=== PATIENT | female | born 1945 | race Caucasian/White ===

== ENCOUNTER → 2016-12-28 | Outpatient (CLI) | payer BC, MEDICARE ==
[2016-12-28 10:48] LABS: ABSOLUTE EOSINOPHILS # (AUTO) 0.1 10^3/uL (0.0-0.6); ABSOLUTE LYMPHOCYTES (AUTO) 1.1 10^3/uL (0.5-4.7); ABSOLUTE MONOCYTES (AUTO) 0.4 10^3/uL (0.1-1.4); ABSOLUTE NEUT (AUTO) 3.1 10^3/uL (1.7-8.2); BASOPHILS % (AUTO) 0.5 % (0-2); EOSINOPHILS % (AUTO) 2.5 % (0-6); HEMATOCRIT 36.9 % (36.0-47.0); HEMOGLOBIN 12.6 g/dL (12.0-15.5); HGB HCT DIFFERENCE 0.9; LYMPHOCYTES % (AUTO) 22.5 % (13-45); MEAN CORPUSCULAR HEMOGLOBIN 33.4 pg (27.0-33.4); MEAN CORPUSCULAR VOLUME 98 fl (80-97); MONOCYTES % (AUTO) 8.2 % (3-13); RED BLOOD COUNT 3.76 10^6/uL (3.72-5.28); RED CELL DISTRIBUTION WIDTH 12.8 % (11.5-14.0); SEGMENTED NEUTROPHILS % (AUTO) 66.3 % (42-78); WHITE BLOOD COUNT 4.7 10^3/uL (4.0-10.5)
[2016-12-28 11:07] LABS: ALANINE AMINOTRANSFERASE 30 U/L (9-52); ALBUMIN 3.7 g/dL (3.5-5.0); ALKALINE PHOSPHATASE 93 U/L (38-126); ANION GAP 9 (5-19); ASPARTATE AMINO TRANSFERASE 18 U/L (14-36); BILIRUBIN,DIRECT 0.3 mg/dL (0.0-0.4); BILIRUBIN,TOTAL 0.6 mg/dL (0.2-1.3); BLOOD UREA NITROGEN 15 mg/dL (7-20); CALCIUM 9.1 mg/dL (8.4-10.2); CARBON DIOXIDE 24 mmol/L (22-30); CHLORIDE 110 mmol/L (98-107); CREATININE RESULT 0.92 mg/dL (0.52-1.25); GLUCOSE 92 mg/dL (75-110); POTASSIUM 4.3 mmol/L (3.6-5.0); SODIUM 142.9 mmol/L (137-145); TOTAL PROTEIN 6.5 g/dL (6.3-8.2)
== END ==
LOC: OD 09:30
PROVIDERS: ATTEND Internal Medicine Geriatric Medicine
DX: I10 Essential (primary) hypertension (principal)
CPT/HCPCS: 36415; 80053; 85025

== ENCOUNTER 2017-01-13 17:41 | Emergency (ER) | payer BC, MEDICARE ==
--- NOTE | 2017-01-13 18:36 | ER Document Report ---
ED Medical Screen (RME) - General Chief Complaint: Chest Pain Stated Complaint: CHEST PAIN Time Seen by Provider: 01/13/17 18:28 Notes: This 71-year-old female patient comes emergency room with complaint of intermittent chest pain for several hours, feeling dizzy and nauseous today, feeling tired for several days getting worse. She reports pressure in her chest , lungs, and upper back. Brief exam shows considerable anterior chest wall tenderness and tenderness to palpate the muscles in her upper back. I have greeted and performed a rapid initial assessment of this patient. A comprehensive ED assessment and evaluation of the patient, analysis of test results and completion of the medical decision making process will be conducted by additional ED providers. TRAVEL OUTSIDE OF THE [place] IN LAST 30 DAYS: No - Related Data Allergies/Adverse Reactions: codeine [Codeine] Allergy (Mild, Verified 04/25/15 15:02) Hives Past Medical History - Past Medical History Cardiac Medical History: Reports: Hx Congestive Heart Failure, Hx Heart Attack, Hx Hypercholesterolemia, Hx Hypertension Pulmonary Medical History: Reports: Hx COPD Neurological Medical History: Reports: Hx Migraine Endocrine Medical History: Reports: Hx Hypothyroidism Renal/ Medical History: Denies: Hx Peritoneal Dialysis GI Medical History: Reports: Hx Hiatal Hernia Psychiatric Medical History: Reports: Hx Anxiety, Hx Depression Past Surgical History: Reports: Hx Cardiac Catheterization - stents x4, Hx Cardiac Surgery - x3 triple bypass, Hx Section - x1, Hx Cholecystectomy , Hx Orthopedic Surgery - cervical fusion - Immunizations Hx Diphtheria, Pertussis, Tetanus Vaccination: Yes Physical Exam - Vital signs Vitals: Temp Pulse Resp BP Pulse Ox 97.9 F 71 18 116/64 96 01/13/17 17:59 01/13/17 17:59 01/13/17 17:59 01/13/17 17:59 01/13/17 17:59 Course - Vital Signs Vital signs: Temp Pulse Resp BP Pulse Ox 97.9 F 71 18 116/64 96 01/13/17 17:59 01/13/17 17:59 01/13/17 17:59 01/13/17 17:59 01/13/17 17:59
--- NOTE | 2017-01-13 19:31 | RADIOLOGY REPORT (SQ) ---
EXAM DESCRIPTION: CHEST PA/LAT COMPLETED DATE/TIME: 01/13/2017 7:13 pm REASON FOR STUDY: chest pain COMPARISON: 04/25/2015 EXAM PARAMETERS: NUMBER OF VIEWS: two views TECHNIQUE: Digital Frontal and Lateral radiographic views of the chest acquired. RADIATION DOSE: NA LIMITATIONS: none FINDINGS: LUNGS AND PLEURA: No opacities, masses or pneumothorax. No pleural effusion. MEDIASTINUM AND HILAR STRUCTURES: No masses or contour abnormalities. HEART AND VASCULAR STRUCTURES: Heart normal size. No evidence for failure. BONES: No acute findings. HARDWARE: Sternotomy wires are in place. OTHER: No other significant finding. IMPRESSION: NO SIGNIFICANT RADIOGRAPHIC FINDING IN THE CHEST. TECHNICAL DOCUMENTATION: JOB ID: [id number] [employer]- All Rights Reserved
[2017-01-13 19:40] LABS: ABSOLUTE EOSINOPHILS # (AUTO) 0.2 10^3/uL (0.0-0.6); ABSOLUTE LYMPHOCYTES (AUTO) 1.3 10^3/uL (0.5-4.7); ABSOLUTE MONOCYTES (AUTO) 0.5 10^3/uL (0.1-1.4); ABSOLUTE NEUT (AUTO) 3.8 10^3/uL (1.7-8.2); BASOPHILS % (AUTO) 0.5 % (0-2); HEMATOCRIT 35.2 % (36.0-47.0); HEMOGLOBIN 12.1 g/dL (12.0-15.5); HGB HCT DIFFERENCE 1.1; LYMPHOCYTES % (AUTO) 22.7 % (13-45); MEAN CORPUSCULAR HEMOGLOBIN 33.5 pg (27.0-33.4); MEAN CORPUSCULAR HGB CONC 34.2 g/dL (32.0-36.0); MEAN CORPUSCULAR VOLUME 98 fl (80-97); MONOCYTES % (AUTO) 8.9 % (3-13); RED CELL DISTRIBUTION WIDTH 12.8 % (11.5-14.0); SEGMENTED NEUTROPHILS % (AUTO) 64.9 % (42-78); WHITE BLOOD COUNT 5.8 10^3/uL (4.0-10.5)
[2017-01-13 20:00] LABS: ALANINE AMINOTRANSFERASE 25 U/L (9-52); ALBUMIN 4.1 g/dL (3.5-5.0); ALKALINE PHOSPHATASE 94 U/L (38-126); ANION GAP 9 (5-19); ASPARTATE AMINO TRANSFERASE 22 U/L (14-36); BILIRUBIN,DIRECT 0.3 mg/dL (0.0-0.4); BILIRUBIN,TOTAL 0.7 mg/dL (0.2-1.3); BLOOD UREA NITROGEN 16 mg/dL (7-20); CALCIUM 9.5 mg/dL (8.4-10.2); CARBON DIOXIDE 26 mmol/L (22-30); CHLORIDE 106 mmol/L (98-107); CREATINE KINASE 66 U/L (30-135); CREATININE RESULT 0.89 mg/dL (0.52-1.25); GLUCOSE 82 mg/dL (75-110); POTASSIUM 4.5 mmol/L (3.6-5.0); SODIUM 140.5 mmol/L (137-145); TOTAL PROTEIN 6.7 g/dL (6.3-8.2)
--- NOTE | 2017-01-13 23:15 | ER Document Report ---
ED General - General Chief Complaint: Chest Pain Stated Complaint: CHEST PAIN Time Seen by Provider: 01/13/17 18:28 Notes: This 71-year-old female with history of coronary artery disease and DE which presented with vomiting and sweating presents to the ED with chest pressure onset 2 PM at rest, throughout the chest nonradiating intermittent least severe however never quite left her. Now it is more sore than anything else. No cough hemoptysis leg swelling sweating nausea vomiting or shortness of breath. She had a reported history of a stress test that was normal 2 months [address] and sees [address] Louise is her senior clinical data analyst. TRAVEL OUTSIDE OF THE [place] IN LAST 30 DAYS: No - Related Data Allergies/Adverse Reactions: codeine [Codeine] Allergy (Mild, Verified 04/25/15 15:02) Hives Home Medications: Current Home Medications Ranolazine [Ranexa 500 mg Tab.sr] 500 mg PO Q12 01/13/17 [History] Past Medical History - General Information source: Patient - Social History Smoking Status: Never Smoker Family History: Reviewed & Not Pertinent Patient has suicidal ideation: No Patient has homicidal ideation: No - Past Medical History Cardiac Medical History: Reports: Hx Congestive Heart Failure, Hx Heart Attack, Hx Hypercholesterolemia, Hx Hypertension Pulmonary Medical History: Reports: Hx COPD Neurological Medical History: Reports: Hx Migraine Endocrine Medical History: Reports: Hx Hypothyroidism Renal/ Medical History: Denies: Hx Peritoneal Dialysis GI Medical History: Reports: Hx Hiatal Hernia Psychiatric Medical History: Reports: Hx Anxiety, Hx Depression Past Surgical History: Reports: Hx Cardiac Catheterization - stents x4, Hx Cardiac Surgery - x3 triple bypass, Hx Section - x1, Hx Cholecystectomy , Hx Orthopedic Surgery - cervical fusion - Immunizations Hx Diphtheria, Pertussis, Tetanus Vaccination: Yes Hx Pneumococcal Vaccination: 03/20/14 Review of Systems - Review of Systems Notes: REVIEW OF SYSTEMS GEN: Denies fever, chills, weight loss ENT: Denies sore throat, nasal discharge, ear pain EYES: Denies blurry vision, eye pain, discharge CV: Chest pain, no edema RESP: Denies cough, shortness of breath, wheezing GI: Denies abdominal pain, nausea, vomiting, diarrhea MSK: Denies joint pain/swelling, edema, SKIN: Denies rash, skin lesions LYMPH: Denies swollen glands/lymph nodes NEURO: Denies headache, focal weakness or numbness, dizziness PSYCH: Denies depression, suicidal or homicidal ideation PHYSICAL EXAMINATION General: No acute distress, well-nourished Head: Atraumatic, normocephalic ENT: Mouth normal, oropharynx moist, no exudates or tonsillar enlargement Eyes: Conjunctiva normal, pupils equal, lids normal Neck: No JVD, supple, no guarding CVS: Normal rate, regular rhythm, no murmurs Resp: No resp distress, equal and normal breath sounds bilaterally GI: Nondistended, soft, no tenderness to palpation, no rebound or guarding Ext: No deformities, no edema, normal range of motion in upper and lower ext Back: No CVA or midline TTP Skin: No rash, warm Lymphatic: No lymphadeopathy noted Neuro: Awake, alert. Face symmetric. GCS 15. Physical Exam - Vital signs Vitals: Temp Pulse Resp BP Pulse Ox 97.9 F 71 18 116/64 96 01/13/17 17:59 01/13/17 17:59 01/13/17 17:59 01/13/17 17:59 01/13/17 17:59 Course - Re-evaluation Re-evalutation: 01/13/17 23:15 Well-appearing 71-year-old female with coronary disease presents with resolved chest pressure normal exam. Her EKG is unchanged nonischemic. Her EKG does not show ischemia. Her chest x-ray is normal. Given this, her physical findings and her story coupled with the fact that she had a recent negative stress test in the last 3 months I think that the chances of this being unstable angina are very low. STEMI and an STEMI have been ruled out with labs and EKG. She is appropriate for outpatient management and can see Dr. Hurst and or Dr. Louise expeditiously for follow-up. She is okay with this plan. I have discussed with the patient there likely diagnosis, aftercare plan, follow -up plans and my usual and customary return precautions. They verbalized understanding of this. - Vital Signs Vital signs: Temp Pulse Resp BP Pulse Ox 97.9 F 71 18 116/64 96 01/13/17 17:59 01/13/17 17:59 01/13/17 17:59 01/13/17 17:59 01/13/17 17:59 - Laboratory Result Diagrams: 01/13/17 18:57 01/13/17 18:57 Laboratory results interpreted by me: 01/13/17 18:57 RBC 3.60 L Hct 35.2 L MCV 98 H MCH 33.5 H - Diagnostic Test Radiology reviewed: Image reviewed, Reports reviewed - EKG Interpretation by Me EKG shows normal: Sinus rhythm Rhythm: NSR - No ST or T-wave changes. When compared to previous EKG there are: No significant change Discharge - Discharge Clinical Impression: Chest pressure Condition: Good Disposition: HOME, SELF-CARE Instructions: Chest Pain of Unclear Cause ([facility]) Additional Instructions: Your EKG was normal today and your blood test for heart attack was also normal. Please follow-up with your primary doctor and or your senior clinical data analyst within 5 days.
[2017-01-13 23:55] VITALS: BP 129/64
--- NOTE | 2017-01-14 13:07 | EKG REPORT ---
SEVERITY:- BORDERLINE ECG - SINUS RHYTHM BORDERLINE T ABNORMALITIES, ANT-LAT LEADS : Confirmed by: Keenan Ward 14-Jan-2017 13:06:57
== END 2017-01-14 00:02 | disposition home or self-care (01) ==
LOC: ER 17:41
DX: R07.89 Other chest pain (principal); I25.10 Atherosclerotic heart disease of native coronary artery without angina pectoris; I25.2 Old myocardial infarction; I10 Essential (primary) hypertension; J44.9 Chronic obstructive pulmonary disease, unspecified; Z88.5 Allergy status to narcotic agent; Z98.61 Coronary angioplasty status
CPT/HCPCS: 36415; 71020; 80053; 82550; 84484; 85025; 93005; 93010; 99285

== ENCOUNTER → 2017-08-12 | Outpatient (CLI) | payer BC, MEDICARE ==
[2017-08-12 11:38] LABS: CHOLESTEROL 172.32 mg/dL (0-200); TRIGLYCERIDES 141 mg/dL (<150)
[2017-08-12 11:51] LABS: DIRECT LDL 94 mg/dL (<100)
== END ==
LOC: OD 10:55
PROVIDERS: ATTEND Internal Medicine Geriatric Medicine
DX: E78.5 Hyperlipidemia, unspecified (principal)
CPT/HCPCS: 36415; 80061

== ENCOUNTER → 2017-10-04 | Outpatient (CLI) | payer BC, MEDICARE ==
[2017-10-04 12:33] LABS: ALANINE AMINOTRANSFERASE 28 U/L (9-52); ALBUMIN 3.9 g/dL (3.5-5.0); ALKALINE PHOSPHATASE 100 U/L (38-126); ANION GAP 12 (5-19); ASPARTATE AMINO TRANSFERASE 23 U/L (14-36); BILIRUBIN,DIRECT 0.2 mg/dL (0.0-0.4); BILIRUBIN,TOTAL 0.2 mg/dL (0.2-1.3); BLOOD UREA NITROGEN 19 mg/dL (7-20); CALCIUM 9.3 mg/dL (8.4-10.2); CARBON DIOXIDE 26 mmol/L (22-30); CHLORIDE 110 mmol/L (98-107); GLUCOSE 108 mg/dL (75-110); POTASSIUM 4.1 mmol/L (3.6-5.0); SODIUM 148.2 mmol/L (137-145); TOTAL PROTEIN 6.5 g/dL (6.3-8.2)
== END ==
LOC: OD 11:04
PROVIDERS: ATTEND Internal Medicine Geriatric Medicine
DX: I10 Essential (primary) hypertension (principal); E03.9 Hypothyroidism, unspecified
CPT/HCPCS: 36415; 80053

== ENCOUNTER → 2017-10-08 | Outpatient (CLI) | payer BC, MEDICARE ==
--- NOTE | 2017-10-08 14:04 | WOMENS IMAGING REPORT ---
EXAM DESCRIPTION: 3D SCREENING MAMMO BILAT COMPLETED DATE/TIME: 10/08/2017 8:59 am REASON FOR STUDY: ROUTINE SCREENING;Z12.31 Z12.31 ENCNTR SCREEN MAMMOGRAM FOR MALIGNANT NEOPLASM OF LARRY COMPARISON: 2013, 2014 TECHNIQUE: Standard craniocaudal and mediolateral oblique views of each breast recorded using digita l acquisition and breast tomosynthesis. LIMITATIONS: None. FINDINGS: Findings present which are benign by mammographic criteria. No suspicious masses, calcifi cations or architectural distortion. Pertinent benign findings: Benign bilateral breast parenchymal calcifications. Read with the assistance of CAD. .[facility] - R2 Cenova Version 1.3 .[facility] - R2 Cenova Version 1.3 .[facility] - R2 Cenova Version 2.4 .[facility] [place] Cenova Version 2.4 .COUNTS INCLUDE 234 BEDS AT THE [facility] - R2 Spinning Mule Operator Version 9.2 Benign mammographic findings may include one or more of the following: Smooth masses, popcorn/rim/co arse calcifications, asymmetries, post-procedure changes, and lesions with long-standing stability. IMPRESSION: BENIGN MAMMOGRAPHIC FINDINGS. BIRADS 2 BREAST DENSITY: b. There are scattered areas of fibroglandular density. BIRAD: 2 BENIGN FINDING(S) RECOMMENDATION: RECOMMENDATION: ROUTINE SCREENING Please continue yearly bilateral screening mammography/tomosynthesis in October 2017. COMMENT: The patient has been notified of the results by letter per MQSA requirements. Additional no tification policies are in place for contacting patient with suspicious or incomplete findings. Quality ID #[id number]: The [employer] recommends an annual screening mammogram for women aged 40 years or over. This facility utilizes a reminder system to ensure that all patients receive reminder letters, and/or direct phone calls for appointments. This includes reminders for routine scr eening mammograms, diagnostic mammograms, or other Breast Imaging Interventions when appropriate. Th is patient will be placed in the appropriate reminder system. The [employer] (ACR) has developed recommendations for screening MRI of the breast s in certain patient populations, to be used in conjunction with mammography. Breast MRI surveillanc e may be appropriate for women with more than 20% lifetime risk of developing breast cancer as deter mined by genetic testing, significant family history of the disease, or history of mantle radiation f or Hodgkins Disease. ACR Practice Guidelines 2008. DBT Technology DBT is a type of tomographic mammography. With conventional mammography, overlapping breast tissue ma y make lesions difficult to detect, even with good compression. DBT uses an x-ray tube that rotates a round the breast, taking images at different angles. These images are then combined to create thin sl ices of the breast that the radiologist can view as a 3D reconstruction. The [employer] unit can perform full-field digital mammograms (2D imaging); or DBT (3D imaging); or both, in a combination mode that quickly performs both the mammogram and the tomosynthesis scan while the breast is still compressed. PQRS 6045F: Fluoroscopic imaging is not utilized for breast tomosynthesis. TECHNICAL DOCUMENTATION: FINDING NUMBER: (1) ASSESSMENT: (1) JOB ID: [id number] [employer]- All Rights Reserved Reading location - IP/workstation name: [email or web address]
== END ==
LOC: WI 08:37
PROVIDERS: ATTEND Internal Medicine Geriatric Medicine
DX: Z12.31 Encounter for screening mammogram for malignant neoplasm of breast (principal)
CPT/HCPCS: 77063; 77067

== ENCOUNTER → 2017-10-27 | Outpatient (CLI) | payer BC, MEDICARE ==
[2017-10-27 11:20] LABS: FREE T3 3.78 pg/mL (2.77-5.27); FREE T4 (FREE THYROXINE) 0.5 ng/dL (0.78-2.19)
== END ==
LOC: OD 09:16
PROVIDERS: ATTEND Internal Medicine Geriatric Medicine
DX: E03.9 Hypothyroidism, unspecified (principal)
CPT/HCPCS: 36415; 84439; 84481

== ENCOUNTER 2018-06-25 18:29 | Observation (INO) | payer BC, MEDICARE ==
[2018-06-25] MEDS ORDERED: ASPIRIN 81 MG TABLET, CHEWABLE PO ONE (18:47)
[2018-06-25 19:02] LABS: ABSOLUTE EOSINOPHILS # (AUTO) 0.2 10^3/uL (0.0-0.6); ABSOLUTE LYMPHOCYTES (AUTO) 1.5 10^3/uL (0.5-4.7); ABSOLUTE MONOCYTES (AUTO) 0.6 10^3/uL (0.1-1.4); ABSOLUTE NEUT (AUTO) 4.7 10^3/uL (1.7-8.2); BASOPHILS % (AUTO) 0.6 % (0-2); EOSINOPHILS % (AUTO) 2.5 % (0-6); HEMATOCRIT 36.4 % (36.0-47.0); HEMOGLOBIN 12.5 g/dL (12.0-15.5); LYMPHOCYTES % (AUTO) 21.1 % (13-45); MEAN CORPUSCULAR HEMOGLOBIN 32.4 pg (27.0-33.4); MEAN CORPUSCULAR HGB CONC 34.4 g/dL (32.0-36.0); MEAN CORPUSCULAR VOLUME 94 fl (80-97); MONOCYTES % (AUTO) 9.1 % (3-13); PLATELET COUNT 190 10^3/uL (150-450); RED BLOOD COUNT 3.86 10^6/uL (3.72-5.28); RED CELL DISTRIBUTION WIDTH 13.2 % (11.5-14.0); SEGMENTED NEUTROPHILS % (AUTO) 66.7 % (42-78); TOTAL CELLS COUNTED % (AUTO) 100 %
[2018-06-25 19:08] LABS: ALANINE AMINOTRANSFERASE 41 U/L (9-52); ALBUMIN 4.4 g/dL (3.5-5.0); ALKALINE PHOSPHATASE 124 U/L (38-126); ANION GAP 7 (5-19); ASPARTATE AMINO TRANSFERASE 38 U/L (14-36); BILIRUBIN,DIRECT 0.1 mg/dL (0.0-0.4); BILIRUBIN,TOTAL 0.4 mg/dL (0.2-1.3); BLOOD UREA NITROGEN 13 mg/dL (7-20); CALCIUM 9.1 mg/dL (8.4-10.2); CARBON DIOXIDE 25 mmol/L (22-30); CHLORIDE 108 mmol/L (98-107); CREATINE KINASE 48 U/L (30-135); GLUCOSE 93 mg/dL (75-110); SODIUM 140.1 mmol/L (137-145); TOTAL PROTEIN 6.8 g/dL (6.3-8.2)
--- NOTE | 2018-06-25 19:08 | RADIOLOGY REPORT (SQ) ---
EXAM DESCRIPTION: CHEST SINGLE VIEW COMPLETED DATE/TIME: 06/25/2018 7:00 pm REASON FOR STUDY: cp COMPARISON: 01/13/2017 EXAM PARAMETERS: NUMBER OF VIEWS: One view. TECHNIQUE: Single frontal radiographic view of the chest acquired. RADIATION DOSE: NA LIMITATIONS: None. FINDINGS: LUNGS AND PLEURA: No opacities, masses or pneumothorax. No pleural effusion. MEDIASTINUM AND HILAR STRUCTURES: No masses. Contour normal. HEART AND VASCULAR STRUCTURES: Heart normal in size. Normal vasculature. BONES: No acute findings. HARDWARE: Midline surgical changes appear stable. Cholecystectomy clips are present. OTHER: No other significant finding. IMPRESSION: NO ACUTE RADIOGRAPHIC FINDING IN THE CHEST. TECHNICAL DOCUMENTATION: JOB ID: [id number] [employer]- All Rights Reserved Reading location - IP/workstation name: [email or web address]
[2018-06-25 19:20] LABS: CREATINE KINASE MB 0.56 ng/mL (<4.55); TROPONIN I < 0.012 ng/mL
--- NOTE | 2018-06-25 19:38 | ER Document Report ---
ED General - General Chief Complaint: Chest Pain Stated Complaint: CHEST PAIN Time Seen by Provider: 06/25/18 19:00 Notes: Patient is a 72-year-old female with extensive history of CAD including CABG and multiple stents that presents to the emergency department for chief complaint of chest pain. Patient reports that while she was at work earlier today, she was standing working as a credit cashier, and developed left-sided chest pain, with associa dave shortness of breath, and nausea, which has since subsided. She was given nitroglycerin by EMS, and aspirin 324 mg, and she states that since then her pain is completely resolved. She states she has had CABG in the past, with subsequent stents, she does not recall the last time she had a stress test. She denies having pain at this time, at the time she described as a heaviness and tightness across the left side of her chest and substernally as well, and rated the pain at the time as a 5 out of 10. Past Medical History: CAD, hypertension, hyperlipidemia Past Surgical History: CABG x3, stents x6 Social History: Former smoker, denies alcohol or drug use. 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 REVIEW OF SYSTEMS: Other than noted above, the 12 point review of systems was reviewed with the patient and were negative, all pertinent findings are included in the HPI. PHYSICAL EXAMINATION: Vital signs reviewed, nursing noted reviewed. GENERAL: Well-appearing, well-nourished and in no acute distress. HEAD: Atraumatic, normocephalic. EYES: Eyes appear normal, extraocular movements intact, sclera anicteric, conjunctiva are normal. ENT: nares patent, oropharynx clear without exudates. Moist mucous membranes. NECK: Normal range of motion, supple without lymphadenopathy LUNGS: Breath sounds clear to auscultation bilaterally and equal. No wheezes rales or rhonchi. HEART: Regular rate and rhythm without murmurs ABDOMEN: Soft, nontender, normoactive bowel sounds. No rebound, guarding, or rigidity. No masses appreciated. EXTREMITIES: Nontender, good range of motion, no pitting or edema. NEUROLOGICAL: No focal neurological deficits. Moves all extremities s pontaneously Motor and sensory grossly intact on exam. PSYCH: Normal mood, normal affect. SKIN: Warm, Dry, normal turgor, no rashes or lesions noted on exposed skin TRAVEL OUTSIDE OF THE [place] IN LAST 30 DAYS: No - Related Data Allergies/Adverse Reactions: codeine [Codeine] Allergy (Mild, Verified 06/25/18 18:43) Hives Past Medical History - Social History Smoking Status: Never Smoker Family History: Reviewed & Not Pertinent Patient has suicidal ideation: No Patient has homicidal ideation: No - Past Medical History Cardiac Medical History: Reports: Hx Congestive Heart Failure, Hx Heart Attack, Hx Hypercholesterolemia, Hx Hypertension Pulmonary Medical History: Reports: Hx COPD Neurological Medical History: Reports: Hx Migraine Endocrine Medical History: Reports: Hx Hypothyroidism Renal/ Medical History: Denies: Hx Peritoneal Dialysis GI Medical History: Reports: Hx Hiatal Hernia Psychiatric Medical History: Reports: Hx Anxiety, Hx Depression - anxiety Past Surgical History: Reports: Hx Cardiac Catheterization - stents x6, Hx Cardiac Surgery - x3 triple bypass, Hx Section - x1, Hx Cholecystectomy, Hx Orthopedic Surgery - cervical fusion - Immunizations Hx Diphtheria, Pertussis, Tetanus Vaccination: Yes Hx Pneumococcal Vaccination: 03/20/14 Physical Exam - Vital signs Vitals: Pulse Ox 98 06/25/18 18:35 Course - Re-evaluation Re-evalutation: Patient seen and examined vital signs reviewed. Laboratory data and imaging were ordered as appropriate for the patient's presenting symptoms and complaint, with consideration of any critical or life threatening conditions that may be associated with their obtained history and exam as noted above. Patient was treated with nitroglycerin and aspirin by EMS Results were reviewed when available and demonstrated negative initial troponin, blood work is otherwise unremarkable, by patient request, did discuss this with the patient's cardiology group, who recommended serial troponin testing and follow-up in the office as an outpatient next week, for stress testing. The patient was re-evaluated and was stable Evaluation was most consistent with chest pain, and a high risk patient, requiring serial troponin testing. Results were discussed with the patient at this point after careful consideration I feel that that patient should be admitted to the hospital. This was discussed with the patient that it is in the best interest for their care to be admitted for further evaluation and management. Patient agreed with this plan of care. A call was placed to the admitted physician, Dr. Ricketts who graciously accepted the patient onto their service. *Note is created using voice recognition software and may contain spelling, syntax or grammatical errors. Laboratory 06/25/18 06/25/18 06/25/18 18:11 18:11 18:11 WBC 7.0 RBC 3.86 Hgb 12.5 Hct 36.4 MCV 94 MCH 32.4 MCHC 34.4 RDW 13.2 Plt Count 190 Seg Neutrophils % 66.7 Lymphocytes % 21.1 Monocytes % 9.1 Eosinophils % 2.5 Basophils % 0.6 Absolute Neutrophils 4.7 Absolute Lymphocytes 1.5 Absolute Monocytes 0.6 Absolute Eosinophils 0.2 Absolute Basophils 0.0 Sodium 140.1 Potassium 4.0 Chloride 108 H Carbon Dioxide 25 Anion Gap 7 BUN 13 Creatinine 0.77 Est GFR ( Amer) > 60 Est GFR (Non-Af Amer) > 60 Glucose 93 Calcium 9.1 Total Bilirubin 0.4 Direct Bilirubin 0.1 Neonat Total Bilirubin Not Reportable Neonat Direct Bilirubin Not Reportable Neonat Indirect Bili Not Reportable AST 38 H ALT 41 Alkaline Phosphatase 124 Creatine Kinase 48 CK-MB (CK-2) 0.56 Troponin I < 0.012 Total Protein 6.8 Albumin 4.4 Chest X-Ray 06/25/18 18:47 IMPRESSION: NO ACUTE RADIOGRAPHIC FINDING IN THE CHEST. - Vital Signs Vital signs: Temp Pulse Resp BP Pulse Ox 98 06/25/18 18:35 - Laboratory Result Diagrams: 06/25/18 18:11 06/25/18 18:11 Laboratory results interpreted by me: 06/25/18 18:11 Chloride 108 H AST 38 H - EKG Interpretation by Me Additional EKG results interpreted by me: EKG demonstrates sinus bradycardia with a ventricular rate of 57 bpm, normal axis, normal intervals, slight T wave inversion in lead aVL, this is compared wi th prior EKG from 01/13/2017, without significant change. Discharge - Discharge Clinical Impression: Chest pain Qualifiers: Chest pain type: unspecified Qualified Code(s): R07.9 - Chest pain, unspecified Condition: Stable Disposition: ADMITTED OBSERVATION Admitting Provider: Ricketts Unit Admitted: Telemetry
[2018-06-25] MEDS ORDERED: IPRATROPIUM/ALBUTEROL 0.5-2.5 MG/3 ML AMPUL NEB PRN (22:03)
[2018-06-25] MEDS ORDERED: ACETAMINOPHEN 325 MG TABLET PO PRN (22:03)
[2018-06-25] MEDS ORDERED: NITROGLYCERIN 0.4 MG/TAB 25 TAB/BOTTLE SL PRN ×2 (22:05→23:18)
--- NOTE | 2018-06-25 22:26 | PDOC H&P ---
History of Present Illness Admission Date/PCP: 06/25/18 21:52 FLORENTINO KISER Patient complains of: Chest pain History of Present Illness: KELECHI WEIR is a 72 year old female This is a 72-year-old female with a patient of Dr. Kiser with a significant history of the coronary artery disease status post bypass with the multiple stent placement currently see Dr. Louise blood tester in [place] came to the emergency department with the sudden onset of the chest pain while patient was working in the [facility] and patient's try to take some nitro unable to relieve called the EMS patients to receive the nitroglycerin pretty much relieved the pain Patient in the emergency department initial EKG and a cardiac enzyme was negative As per ER physicians call me and suggest to admit the patient while he talked to the Dr. Louise blood tester in [place] and he suggest to admit the patient's overnight with a 3 cardiac set of enzyme and follow that outpatient and he will do the stress test when i saw patient's in the ER denied any chest pain denied any shortness of the breath Patient is denied any history of the smoking recently used to smoke in the past Patient is denied any cough no congestions no headache Discussed with the daughter on the bedside discussed about the [place] cardiology is concerned agreed to admit here Past Medical History Cardiac Medical History: Reports: Congestive Heart Failure, Myocardial Infarction, Hyperlipidema, Hypertension Pulmonary Medical History: Reports: Chronic Obstructive Pulmonary Disease (COPD) Neurological Medical History: Reports: Migraine Endocrine Medical History: Reports: Hypothyroidism GI Medical History: Reports: Hiatal Hernia Psychiatric Medical History: Reports: Depression - anxiety Hematology: Reports: Anemia Past Surgical History Past Surgical History: Reports: Cardiac Catheterization - stents x6, Section - x1, Cholecystectomy, Orthopedic Surgery - cervical fusion Social History Smoking Status: Never Smoker Frequency of Alcohol Use: None Hx Recreational Drug Use: No Hx Prescription Drug Abuse: No Family History Family History: Reviewed & Not Pertinent Parental Family History Reviewed: Yes Children Family History Reviewed: Yes Sibling(s) Family History Reviewed.: Yes Medication/Allergy Home Medications: Albuterol Sulfate [Ventolin Hfa] 2 puff IH Q4H PRN 07/15/13 Atorvastatin Calcium [Lipitor 40 mg Tablet] 40 mg PO QHS 07/15/13 Carvedilol [Coreg 3.125 mg Tablet] 3.125 mg PO BID 02/08/14 Clopidogrel Bisulfate [Plavix 75 mg Tablet] 75 mg PO DAILY 07/15/13 Levothyroxine Sodium [Synthroid] 50 mcg PO DAILY 07/15/13 Lisinopril 5 mg PO DAILY 07/15/13 Aclidinium Risco [Tudorza Pressair for Inh] 800 mcg IH BID 04/22/14 Cetirizine HCl [Zyrtec] 10 mg PO DAILY 04/22/14 Multivitamin [One-A-Day Essential] 1 each PO DAILY 04/22/14 Psyllium Husk [Metamucil] 1.04 gm PO BID 04/22/14 Vilazodone HCl [Viibryd] 40 mg PO DAILY 04/22/14 Nitroglycerin [Nitrostat 0.4 mg (1/150 Gr) Tabs 25/Bottle] 1 tab SL Q5MP PRN #1 bottle 04/23/14 Prednisone 60 mg PO DAILY #12 tablet 04/25/15 Ranolazine [Ranexa 500 mg Tab.sr] 500 mg PO Q12 01/13/17 Allergies/Adverse Reactions: codeine [Codeine] Allergy (Mild, Verified 06/25/18 18:43) Hives Review of Systems Constitutional: ABSENT: chills, fever(s), headache(s), weight gain, weight loss Eyes: ABSENT: visual disturbances Ears: ABSENT: hearing changes Cardiovascular: ABSENT: chest pain, dyspnea on exertion, edema, orthropnea, palpitations Respiratory: ABSENT: cough, hemoptysis Gastrointestinal: ABSENT: abdominal pain, constipation, diarrhea, hematemesis, hematochezia, nausea, vomiting Genitourinary: ABSENT: dysuria, hematuria Musculoskeletal: ABSENT: joint swelling Integumentary: ABSENT: rash, wounds Neurological: ABSENT: abnormal gait, abnormal speech, confusion, dizziness, focal weakness, syncope Psychiatric: ABSENT: anxiety, depression, homidical ideation, suicidal ideation Endocrine: ABSENT: cold intolerance, heat intolerance, menstrual abnormalities, polydipsia, polyuria Hematologic/Lymphatic: ABSENT: easy bleeding, easy bruising, lymphadenopathy Physical Exam Vital Signs: Temp Pulse Resp BP Pulse Ox 98 06/25/18 18:35 Intake & Output 06/24/18 06/25/18 06/26/18 06:59 06:59 06:59 Weight 67.132 kg General appearance: PRESENT: no acute distress, well-developed, well-nourished Head exam: PRESENT: atraumatic, normocephalic Eye exam: PRESENT: conjunctiva pink, EOMI, PERRLA. ABSENT: scleral icterus Ear exam: PRESENT: normal external ear exam Mouth exam: PRESENT: moist, tongue midline Neck exam: PRESENT: full ROM. ABSENT: carotid bruit, JVD, lymphadenopathy, thyromegaly Respiratory exam: PRESENT: clear to auscultation micki Cardiovascular exam: PRESENT: RRR. ABSENT: diastolic murmur, rubs, systolic murmur Pulses: PRESENT: normal dorsalis pedis pul, +2 pedal pulses bilateral Vascular exam: PRESENT: normal capillary refill GI/Abdominal exam: PRESENT: normal bowel sounds, soft. ABSENT: distended, guarding, mass, organolmegaly, rebound, tenderness Rectal exam: PRESENT: deferred Extremities exam: ABSENT: pedal edema Musculoskeletal exam: PRESENT: ambulatory Neurological exam: PRESENT: alert, awake, oriented to person, oriented to place, oriented to time, oriented to situation, CN II-XII grossly intact. ABSENT: m otor sensory deficit Psychiatric exam: PRESENT: appropriate affect, normal mood. ABSENT: homicidal ideation, suicidal ideation Skin exam: PRESENT: dry, intact, warm. ABSENT: cyanosis, rash Results Laboratory Results: 06/25/18 18:11 06/25/18 18:11 06/25/18 06/25/18 18:11 18:11 WBC 7.0 RBC 3.86 Hgb 12.5 Hct 36.4 MCV 94 MCH 32.4 MCHC 34.4 RDW 13.2 Plt Count 190 Seg Neutrophils % 66.7 Lymphocytes % 21.1 Monocytes % 9.1 Eosinophils % 2.5 Basophils % 0.6 Absolute Neutrophils 4.7 Absolute Lymphocytes 1.5 Absolute Monocytes 0.6 Absolute Eosinophils 0.2 Absolute Basophils 0.0 Sodium 140.1 Potassium 4.0 Chloride 108 H Carbon Dioxide 25 Anion Gap 7 BUN 13 Creatinine 0.77 Est GFR ( Amer) > 60 Est GFR (Non-Af Amer) > 60 Glucose 93 Calcium 9.1 Total Bilirubin 0.4 AST 38 H ALT 41 Alkaline Phosphatase 124 Total Protein 6.8 Albumin 4.4 06/25/18 06/25/18 18:11 18:11 Creatine Kinase 48 CK-MB (CK-2) 0.56 Troponin I < 0.012 Impressions: Chest X-Ray 06/25/18 18:47 IMPRESSION: NO ACUTE RADIOGRAPHIC FINDING IN THE CHEST. Assessment & Plan - Diagnosis (1) Chest pain Qualifiers: Chest pain type: unspecified Qualified Code(s): R07.9 - Chest pain, unspecified Is this a current diagnosis for this admission?: Yes Plan: Patient is a very high risk with a significant coronary disease will admit the patient is to rule out acute coronary syndromes consult the local blood tester (2) CAD, multiple vessel Is this a current diagnosis for this admission?: Yes Plan: Continue current medication (3) Chronic pain syndrome Is this a current diagnosis for this admission?: Yes (4) HLD (hyperlipidemia) Qualifiers: Hyperlipidemia type: unspecified Qualified Code(s): E78.5 - Hyperlipidemia, unspecified Is this a current diagnosis for this admission?: Yes (5) HTN (hypertension) Qualifiers: Hypertension type: essential hypertension Qualified Code(s): I10 - Essential (primary) hypertension Is this a current diagnosis for this admission?: Yes (6) Anxiety disorder Qualifiers: Anxiety disorder type: generalized anxiety disorder Qualified Code(s): F41.1 - Generalized anxiety disorder Is this a current diagnosis for this admission?: Yes - Time Time Spent: 30 to 50 Minutes Medications reviewed and adjusted accordingly: Yes Anticipated discharge: Home Within: Other - Inpatient Certification Based on my medical assessment, after consideration of the patient's com orbidities, presenting symptoms, or acuity I expect that the services needed warrant INPATIENT care.: Yes I certify that my determination is in accordance with my understanding of Medicare's requirements for reasonable and necessary INPATIENT services [42 CFR 412.3e].: Yes Medical Necessity: Significant Comorbidiites Make Outpatient Treatment Too Risky, Need Close Monitoring Due to Risk of Patient Decompensation 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
[2018-06-25 22:51] LABS: CREATINE KINASE MB 0.47 ng/mL (<4.55)
[2018-06-25 22:54] LABS: TROPONIN I < 0.012 ng/mL
[2018-06-26] MEDS: ACETAMINOPHEN 325 MG TABLET PO SCH ×3 (01:23→12:54)
[2018-06-26 05:34] LABS: CREATINE KINASE MB 0.39 ng/mL (<4.55)
[2018-06-26 05:35] LABS: TROPONIN I < 0.012 ng/mL
[2018-06-26] MEDS ORDERED: ALBUTEROL SULFATE HFA (90 MCG/PUFF) 200 PUFF/8.5 GM MDI IH SCH ×2 (08:00→11:00)
[2018-06-26] MEDS ORDERED: CLOPIDOGREL BISULFATE 75 MG TABLET PO SCH (10:00)
[2018-06-26] MEDS ORDERED: (PENDING PHARMACY ID) (Aclidinium Bromide [Tudorza Pressair] 1 PUFF) IH SCH (10:00)
[2018-06-26] MEDS ORDERED: (PENDING PHARMACY ID) (Vilazodone Hcl [Viibryd] 40 MG) PO SCH (10:00)
[2018-06-26] MEDS ORDERED: LISINOPRIL 5 MG TABLET PO SCH (10:00)
[2018-06-26] MEDS ORDERED: MULTIVITAMIN TABLET PO SCH (10:00)
[2018-06-26] MEDS ORDERED: LEVOTHYROXINE SODIUM 0.05 MG TABLET PO SCH (10:00)
[2018-06-26] MEDS ORDERED: ISOSORBIDE DINITRATE 10 MG TABLET PO SCH (10:00)
[2018-06-26] MEDS ORDERED: FLUTICASONE NASAL SPRAY 50 MCG/SPRY 120 SPRAY/16 GM NASL SCH (10:00)
[2018-06-26] MEDS ORDERED: (PENDING PHARMACY ID) (Buspirone Hcl [Buspar 5 Mg Tablet] 7.5 MG) PO SCH (10:00)
[2018-06-26] MEDS ORDERED: CARVEDILOL 3.125 MG TABLET PO SCH (10:00)
[2018-06-26] MEDS ORDERED: BENZONATATE 100 MG CAPSULE PO SCH (10:00)
[2018-06-26] MEDS: ENOXAPARIN SODIUM INJ 40 MG/0.4 ML DISP.SYRIN SUBCUT SCH ×2 (10:19→10:30)
[2018-06-26 10:49] LABS: CREATINE KINASE MB 0.32 ng/mL (<4.55)
[2018-06-26 10:51] LABS: TROPONIN I < 0.012 ng/mL
[2018-06-26 12:48] VITALS: BP 99/58
[2018-06-26 12:53] LABS: CREATINE KINASE MB 0.28 ng/mL (<4.55)
[2018-06-26 12:54] LABS: TROPONIN I < 0.012 ng/mL
--- NOTE | 2018-06-26 13:33 | PDOC DISCHARGE SUMMARY ---
General - Admit/Disc Date/PCP Admission Date/Primary Care Provider: 06/25/18 21:52 FLORENTINO RASHEL Discharge Date: 06/26/18 - Discharge Diagnosis (1) Chest pain Is this a current diagnosis for this admission?: Yes Summary: No sign of any acute coronary syndromes Consult with the cardiology Dr. Leone and suggest the patient's follow-up with on cardiology Dr. Louise as per discussed by the ER physicians with rule out acute coronary syndrome and patient does not have any chest pain anymore (2) CAD, multiple vessel Is this a current diagnosis for this admission?: Yes Summary: With the Dr. Louise as outpatient (3) Chronic pain syndrome Is this a current diagnosis for this admission?: Yes (4) HLD (hyperlipidemia) Is this a current diagnosis for this admission?: Yes (5) HTN (hypertension) Is this a current diagnosis for this admission?: Yes (6) Anxiety disorder Is this a current diagnosis for this admission?: Yes - Additional Information Resuscitation Status: Full Code Discharge Diet: Cardiac Discharge Activity: Activity As Tolerated, Balance Activity w/Rest Prescriptions: Nitroglycerin [Nitrostat 0.4 mg (1/150 Gr) Tabs 25/Bottle] 1 tab SL Q5MP PRN #20 bottle PRN Reason: Home Medications: Acetaminophen [Tylenol] 650 mg PO Q6H 06/25/18 Aclidinium Rienzi [Tudorza Pressair] 1 puff IH BID 06/25/18 Atorvastatin Calcium [Lipitor 20 mg Tablet] 10 mg PO QPM 06/25/18 Buspirone HCl [Buspar 5 mg Tablet] 7.5 mg PO BID 06/25/18 Carvedilol [Coreg 3.125 mg Tablet] 3.125 mg PO BID 06/25/18 Clopidogrel Bisulfate [Plavix 75 mg Tablet] 75 mg PO DAILY 06/25/18 Fluticasone Propionate [Flonase Allergy Relief] 1 spray NASL DAILY 06/25/18 Levothyroxine Sodium 50 mcg PO DAILY 06/25/18 Lisinopril [Prinivil 5 mg Tablet] 5 mg PO DAILY 06/25/18 Multivitamin [Multiple Vitamins] 1 tab PO DAILY 06/25/18 Nitroglycerin 0.4 mg PO PRN PRN 06/25/18 Vilazodone HCl [Viibryd] 40 mg PO DAILY 06/25/18 Albuterol Sulfate [Ventolin Hfa 8 gm Mdi (1 Mdi/ER Disp)] 2 puff IH QID 06/26/18 Isosorbide Dinitrate [Isosorbide Dinitrate ER] 60 mg PO DAILY #30 06/26/18 Nitroglycerin [Nitrostat 0.4 mg (1/150 Gr) Tabs 25/Bottle] 1 tab SL Q5MP PRN #20 bottle 06/26/18 History of Present Illness History of Present Illness: KELECHI WEIR is a 72 year old female This is a 72-year-old female with a patient of Dr. Hurst with a significant history of the coronary artery disease status post bypass with the multiple stent placement currently see Dr. Louise acid cutter in [place] came to the emergency department with the sudden onset of the chest pain while patient was working in the [facility] [employer] and patient's try to take some nitro unable to relieve called the EMS patients to receive the nitroglycerin pretty much relieved the pain Patient in the emergency department initial EKG and a cardiac enzyme was negative As per ER physicians call me and suggest to admit the patient while he talked to the Dr. Louise acid cutter in [place] and he suggest to admit the patient's overnight with a 3 cardiac set of enzyme and follow that outpatient and he will do the stress test when i saw patient's in the ER denied any chest pain denied any shortness of the breath Patient is denied any history of the smoking recently used to smoke in the past Patient is denied any cough no congestions no headache Discussed with the daughter on the bedside discussed about the [place] cardiology is concerned agreed to admit here Hospital Course Hospital Course: This is a 72-year-old female with multiple coronaries history with the bypass surgery status post) came to the emergency department the complaint with chest pain relieved with the nitro in the ER physician discussed with the patient's cardiology Dr. Louise and suggest to admit overnight to rule out 3 set of cardiac enzyme and discharge follow outpatient Patient's all cardiac enzyme EKG all stable patient seen by the cardiology Dr. Leone suggest to follow outpatient patient Dr. Louise for the stress test Patient is currently denied any chest pain to than any shortness of the breath Patient is ambulatory in the hallway and all stable Discussed with the son on the bedside regarding the patient's current condition and follow-up As per discussed with the Dr. Leone suggest to increase the isosorbide to 60 mg Patient otherwise doing well Physical Exam Vital Signs: Temp Pulse Resp BP Pulse Ox 97.9 F 75 14 99/58 L 97 06/26/18 13:08 06/26/18 13:08 06/26/18 13:08 06/26/18 13:08 06/26/18 13:08 Intake & Output 06/25/18 06/26/18 06/27/18 06:59 06:59 06:59 Weight 70.6 kg General appearance: PRESENT: no acute distress, well-developed, well-nourished Head exam: PRESENT: atraumatic, normocephalic Eye exam: PRESENT: conjunctiva pink, EOMI, PERRLA. ABSENT: scleral icterus Ear exam: PRESENT: normal external ear exam Mouth exam: PRESENT: moist, tongue midline Neck exam: PRESENT: full ROM. ABSENT: carotid bruit, JVD, lymphadenopathy, thyromegaly Respiratory exam: PRESENT: clear to auscultation micki Cardiovascular exam: PRESENT: RRR. ABSENT: diastolic murmur, rubs, systolic murmur Pulses: PRESENT: normal dorsalis pedis pul, +2 pedal pulses bilateral Vascular exam: PRESENT: normal capillary refill GI/Abdominal exam: PRESENT: normal bowel sounds, soft. ABSENT: distended, guarding, mass, organolmegaly, rebound, tenderness Rectal exam: PRESENT: deferred Extremities exam: ABSENT: pedal edema Musculoskeletal exam: PRESENT: ambulatory Neurological exam: PRESENT: alert, awake, oriented to person, oriented to place, oriented to time, oriented to situation, CN II-XII grossly intact. ABSENT: motor sensory deficit Psychiatric exam: PRESENT: appropriate affect, normal mood. ABSENT: homicidal ideation, suicidal ideation Skin exam: PRESENT: dry, intact, warm. ABSENT: cyanosis, rash Results Laboratory Results: 06/25/18 18:11 06/25/18 18:11 06/25/18 06/25/18 18: 18:11 WBC 7.0 RBC 3.86 Hgb 12.5 Hct 36.4 MCV 94 MCH 32.4 MCHC 34.4 RDW 13.2 Plt Count 190 Seg Neutrophils % 66.7 Lymphocytes % 21.1 Monocytes % 9.1 Eosinophils % 2.5 Basophils % 0.6 Absolute Neutrophils 4.7 Absolute Lymphocytes 1.5 Absolute Monocytes 0.6 Absolute Eosinophils 0.2 Absolute Basophils 0.0 Sodium 140.1 Potassium 4.0 Chloride 108 H Carbon Dioxide 25 Anion Gap 7 BUN 13 Creatinine 0.77 Est GFR ( Amer) > 60 Est GFR (Non-Af Amer) > 60 Glucose 93 Calcium 9.1 Total Bilirubin 0.4 AST 38 H ALT 41 Alkaline Phosphatase 124 Total Protein 6.8 Albumin 4.4 06/25/18 06/25/18 06/25/18 18:11 18:11 22:15 Creatine Kinase 48 36 CK-MB (CK-2) 0.56 Troponin I < 0.012 06/25/18 06/26/18 06/26/18 22:15 04:16 04:16 Creatine Kinase 35 CK-MB (CK-2) 0.47 0.39 Troponin I < 0.012 < 0.012 06/26/18 06/26/18 06/26/18 10:11 10:11 12:10 Creatine Kinase 36 33 CK-MB (CK-2) 0.32 Troponin I < 0.012 06/26/18 12:10 Creatine Kinase CK-MB (CK-2) 0.28 Troponin I < 0.012 Impressions: Chest X-Ray 06/25/18 18:47 IMPRESSION: NO ACUTE RADIOGRAPHIC FINDING IN THE CHEST. Qualifiers - * PATIENT BEING DISCHARGED WITH ANY OF THE FOLLOWING DIAGNOSIS: No VTE patient discharged on overlapping Therapy?: Yes Plan Time Spent: Greater than 30 Minutes - Continues to current medications Discussed with the patient and the son Discussed with the local cardiology
[2018-06-26] MEDS ORDERED: ATORVASTATIN CALCIUM 20 MG TABLET PO SCH (18:00)
--- NOTE | 2018-06-26 23:47 | EKG REPORT ---
SEVERITY:- BORDERLINE ECG - SINUS RHYTHM BORDERLINE T ABNORMALITIES, ANT-LAT LEADS : Confirmed by: Keenan Ward 26-Jun-2018 23:47:25
--- NOTE | 2018-06-26 23:48 | EKG REPORT ---
SEVERITY:- ABNORMAL ECG - SINUS RHYTHM CONSIDER ANTERIOR INFARCT ABNORMAL T, CONSIDER ISCHEMIA, LATERAL LEADS : Confirmed by: Keenan Ward 26-Jun-2018 23:47:19
--- NOTE | 2018-06-27 09:45 | EKG REPORT ---
SEVERITY:- ABNORMAL ECG - SINUS RHYTHM CONSIDER ANTERIOR INFARCT ABNORMAL T, CONSIDER ISCHEMIA, LATERAL LEADS : Confirmed on behalf of: Keenan Ward 27-Jun-2018 09:45:08
--- NOTE | 2018-06-27 18:30 | EKG REPORT ---
SEVERITY:- BORDERLINE ECG - SINUS RHYTHM BORDERLINE R WAVE PROGRESSION, ANTERIOR LEADS BORDERLINE T ABNORMALITIES, ANT-LAT LEADS : Confirmed by: Suzi Leone MD 27-Jun-2018 18:29:47
== END 2018-06-26 14:10 | disposition home or self-care (01) ==
LOC: ER 18:29 → EH 21:52 → 5 06-26 00:13
PROVIDERS: ADMIT Internal Medicine Geriatric Medicine; ATTEND Internal Medicine Geriatric Medicine
DX: R07.9 Chest pain, unspecified (principal); I25.10 Atherosclerotic heart disease of native coronary artery without angina pectoris; R06.02 Shortness of breath; R11.0 Nausea; G89.4 Chronic pain syndrome; E78.5 Hyperlipidemia, unspecified; I11.0 Hypertensive heart disease with heart failure; I50.9 Heart failure, unspecified; J44.9 Chronic obstructive pulmonary disease, unspecified; F41.1 Generalized anxiety disorder; E03.9 Hypothyroidism, unspecified; R00.1 Bradycardia, unspecified; I25.2 Old myocardial infarction; Z95.5 Presence of coronary angioplasty implant and graft; Z95.1 Presence of aortocoronary bypass graft; Z87.891 Personal history of nicotine dependence; Z79.899 Other long term (current) drug therapy; Z98.1 Arthrodesis status; Z90.49 Acquired absence of other specified parts of digestive tract
CPT/HCPCS: 93005 ×2; 99285; 36415 ×2; 82553 ×2; 82550 ×2; 85025; 80053; 84484 ×2; 71045; 93010 ×2; G0378 ×2; J3490; J1650

== ENCOUNTER 2018-09-18 13:59 | Emergency (ER) | payer BC, MEDICARE ==
[2018-09-18 14:27] LABS: ABSOLUTE EOSINOPHILS # (AUTO) 0.1 10^3/uL (0.0-0.6); ABSOLUTE LYMPHOCYTES (AUTO) 1.2 10^3/uL (0.5-4.7); ABSOLUTE MONOCYTES (AUTO) 0.7 10^3/uL (0.1-1.4); ABSOLUTE NEUT (AUTO) 4.2 10^3/uL (1.7-8.2); BASOPHILS % (AUTO) 0.8 % (0-2); EOSINOPHILS % (AUTO) 1.9 % (0-6); HEMATOCRIT 36.8 % (36.0-47.0); HEMOGLOBIN 12.6 g/dL (12.0-15.5); MEAN CORPUSCULAR HGB CONC 34.3 g/dL (32.0-36.0); MEAN CORPUSCULAR VOLUME 93 fl (80-97); MONOCYTES % (AUTO) 10.8 % (3-13); PLATELET COUNT 184 10^3/uL (150-450); RED BLOOD COUNT 3.94 10^6/uL (3.72-5.28); RED CELL DISTRIBUTION WIDTH 13.3 % (11.5-14.0); SEGMENTED NEUTROPHILS % (AUTO) 67.5 % (42-78); TOTAL CELLS COUNTED % (AUTO) 100 %; WHITE BLOOD COUNT 6.2 10^3/uL (4.0-10.5)
[2018-09-18 14:41] LABS: ALANINE AMINOTRANSFERASE 36 U/L (9-52); ALBUMIN 3.8 g/dL (3.5-5.0); ALKALINE PHOSPHATASE 91 U/L (38-126); ANION GAP 10 (5-19); ASPARTATE AMINO TRANSFERASE 30 U/L (14-36); BILIRUBIN,DIRECT 0.2 mg/dL (0.0-0.4); BILIRUBIN,TOTAL 0.6 mg/dL (0.2-1.3); BLOOD UREA NITROGEN 17 mg/dL (7-20); CALCIUM 9.3 mg/dL (8.4-10.2); CARBON DIOXIDE 23 mmol/L (22-30); CHLORIDE 109 mmol/L (98-107); CREATINE KINASE 33 U/L (30-135); GLUCOSE 109 mg/dL (75-110); POTASSIUM 4.1 mmol/L (3.6-5.0); SODIUM 141.9 mmol/L (137-145); TOTAL PROTEIN 6.7 g/dL (6.3-8.2)
[2018-09-18] MEDS ORDERED: NORMAL SALINE 250 ML IV ONE (14:43)
[2018-09-18 14:53] LABS: CREATINE KINASE MB 0.32 ng/mL (<4.55)
[2018-09-18 14:57] LABS: TROPONIN I < 0.012 ng/mL
[2018-09-18 14:58] VITALS: BP 107/52
--- NOTE | 2018-09-18 15:03 | RADIOLOGY REPORT (SQ) ---
EXAM DESCRIPTION: CHEST SINGLE VIEW COMPLETED DATE/TIME: 09/18/2018 2:49 pm REASON FOR STUDY: syncope COMPARISON: Chest x-ray 06/25/2018. EXAM PARAMETERS: NUMBER OF VIEWS: One view. TECHNIQUE: Single frontal radiographic view of the chest acquired. RADIATION DOSE: NA LIMITATIONS: None. FINDINGS: LUNGS AND PLEURA: No consolidation, pneumothorax or pleural effusion. MEDIASTINUM AND HILAR STRUCTURES: No masses. Contour normal. HEART AND VASCULAR STRUCTURES: Heart normal in size. Normal vasculature. BONES: No acute findings. HARDWARE: Sternotomy wires are present. IMPRESSION: NO ACUTE RADIOGRAPHIC FINDING IN THE CHEST. TECHNICAL DOCUMENTATION: JOB ID: [id number] [employer]- All Rights Reserved Reading location - IP/workstation name: [email or web address]
--- NOTE | 2018-09-18 15:31 | ER Document Report ---
ED General - General Chief Complaint: Syncope Stated Complaint: SYNCOPE Time Seen by Provider: 09/18/18 14:19 Primary Care Provider: FLORENTINO KISER MD [Primary Care Provider] - Follow up as needed TRAVEL OUTSIDE OF THE [place] IN LAST 30 DAYS: No - HPI Notes: Patient is a 73-year-old female who presents to the emergency department for evaluation after syncopal episode. She states that she got out of a hot shower. She felt extremely dizzy. She sat down and was able to feel improved. She went into the kitchen to separate an orange. While there she became extremely dizzy as well. She placed her head down on the counter. Her son lowered her to the floor. According to him she was unresponsive for approximately 4 minutes. At that point her breathing became rapid and then she came around. Patient states she has been eating and drinking normally, but others tell her that she does not eat or drink enough. She has had no changes in her medications as of late. EMS states that she was orthostatic in the field, her blood pressure was initially 108/68 sitting and 79/68 standing. - Related Data Allergies/Adverse Reactions: codeine [Codeine] Allergy (Mild, Verified 06/25/18 18:43) Hives Past Medical History - General Information source: Patient, Relative, Emergency Med Personnel - Social History Smoking Status: Never Smoker Chew tobacco use (# tins/day): No Frequency of alcohol use: None Drug Abuse: None Family History: Reviewed & Not Pertinent Patient has suicidal ideation: No Patient has homicidal ideation: No - Past Medical History Cardiac Medical History: Reports: Hx Heart Attack, Hx Hypercholesterolemia, Hx Hypertension Pulmonary Medical History: Reports: Hx COPD Neurological Medical History: Reports: Hx Migraine Endocrine Medical History: Reports: Hx Hypothyroidism Renal/ Medical History: Denies: Hx Peritoneal Dialysis GI Medical History: Reports: Hx Hiatal Hernia Psychiatric Medical History: Reports: Hx Anxiety Denies: Hx Depression Past Surgical History: Reports: Hx Cardiac Catheterization - stents x6, Hx Cardiac Surgery - x3 triple bypass, Hx Section - x1, Hx Cholecystectomy, Hx Orthopedic Surgery - cervical fusion - Immunizations Hx Diphtheria, Pertussis, Tetanus Vaccination: Yes Hx Pneumococcal Vaccination: 03/20/14 Review of Systems - Review of Systems Constitutional: No symptoms reported EENT: No symptoms reported Cardiovascular: See HPI Respiratory: No symptoms reported Gastrointestinal: No symptoms reported Genitourinary: No symptoms reported Musculoskeletal: No symptoms reported Skin: No symptoms reported Neurological/Psychological: No symptoms reported Physical Exam - Vital signs Vitals: Pulse BP 87 107/52 L 09/18/18 14:11 09/18/18 14:11 - Notes Notes: Vital signs reviewed, please refer to chart. Patient is normocephalic, atraumatic. Pupils equal round, reactive to light. Neck is supple without meningismus. Heart is regular rate and rhythm. Lungs are clear to auscultation bilaterally. Abdomen is soft, nontender, normoactive bowel sounds throughout. Extremities without cyanosis, clubbing, edema. Peripheral pulses are equal. Skin is warm and dry. Patient is awake, alert, oriented x3. Cranial nerves II through XII are grossly intact without focal neurological deficits. Strength is plus 5 out of 5 bilateral upper and lower extremities. Sensation is intact. Intact finger nose finger, rapid altering movements, [id number]. Course - Re-evaluation Re-evalutation: 09/18/18 15:28 Patient presents the emergency department for evaluation of dizziness and a syncopal episode. I did repeat orthostatic vital signs here and they were not significantly remarkable. She did have an increase in her heart rate but her blood pressure remained stable. The patient was symptomatic, however, a change in position. She was given a 250 normal saline bolus. EKG is unremarkable. We will continue to follow. 09/18/18 16:40 Laboratory investigations and imaging are all unremarkable. Patient is remained on telemetry and has no significant ectopy or arrhythmias noted. She is feeling improved. At this point I strongly suspect orthostatic hypotension is t he etiology of her syncope, but I am slightly concerned by the length of time she was down. It was estimated to be a few minutes. I discussed this at length with the patient as well as her son. I still believe it is certainly possible, if not likely, that this is all due to orthostasis. Certainly, however, she has an extensive cardiac history. She is to follow-up very closely with her primary care physician. Any return of her symptoms or new concerning symptoms should prompt them to immediately return. Both patient as well as her son voiced understanding to this. Otherwise they are to call Dr. Kiser tomorrow morning for a follow-up appointment in the next 48 hours. - Vital Signs Vital signs: Temp Pulse Resp BP Pulse Ox 87 107/52 L 09/18/18 14:11 09/18/18 14:11 - Laboratory Result Diagrams: 09/18/18 14:09 09/18/18 14:09 Laboratory results interpreted by me: 09/18/18 14:09 Chloride 109 H - Diagnostic Test Radiology reviewed: Reports reviewed - No acute cardiopulmonary disease - EKG Interpretation by Me Additional EKG results interpreted by me: 09/18/18 15:29 Sinus mechanism with a rate of 81 bpm. Normal axis and intervals, no acute changes concerning for infarction. Nonspecific lateral ST changes, which may be unremarkable or a sign of early ischemia. No old studies for comparison. Discharge - Discharge Clinical Impression: Syncope, Orthostatic hypotension Condition: Stable Disposition: HOME, SELF-CARE Instructions: Syncopal Episode ([facility]), Orthostatic Hypotension ([facility]) Additional Instructions: Rest, stay well-hydrated. Follow-up with Dr. Kiser in the next 48 hours. Return to the emergency department with worsening or new concerning symptoms of any sort. Referrals: FLORENTINO KISER MD [Primary Care Provider] - Follow up as needed
--- NOTE | 2018-09-18 23:40 | EKG REPORT ---
SEVERITY:- BORDERLINE ECG - SINUS RHYTHM BORDERLINE T ABNORMALITIES, ANT-LAT LEADS : Confirmed by: Keenan Ward 18-Sep-2018 23:39:37
== END 2018-09-18 17:53 | disposition home or self-care (01) ==
LOC: ER 13:59
DX: I95.1 Orthostatic hypotension (principal); I10 Essential (primary) hypertension; I25.2 Old myocardial infarction; J44.9 Chronic obstructive pulmonary disease, unspecified; Z95.5 Presence of coronary angioplasty implant and graft; Z95.1 Presence of aortocoronary bypass graft; Z88.5 Allergy status to narcotic agent
CPT/HCPCS: 93005; 99284; 36415; 82553; 82550; 85025; 80053; 84484; 71045; 93010; J7050

== ENCOUNTER → 2018-09-27 | Outpatient (CLI) | payer BC, MEDICARE ==
--- NOTE | 2018-09-27 09:57 | RADIOLOGY REPORT (SQ) ---
EXAM DESCRIPTION: CAROTID DOPPLER COMPLETED DATE/TIME: 09/27/2018 8:54 am REASON FOR STUDY: SYNCOPE WITH COLLAPSE R55 SYNCOPE AND COLLAPSE COMPARISON: None. TECHNIQUE: Grayscale ultrasound, Doppler velocity and spectra, and color Doppler images acquired of the extra-cranial carotid and vertebral arteries. Images stored on PACS. LIMITATIONS: None. FINDINGS: RIGHT CAROTID CCA Velocities: Within normal limits. ICA Velocities Peak systolic 1.5 m/s. End diastolic 0.49 m/s. Proximal ICA/CCA peak systolic ratio 1.98. Dense shadowing plaque in the carotid bulb. LEFT CAROTID CCA Velocities: Within normal limits. ICA Velocities Peak systolic 0.85 m/s. End diastolic 0.29 m/s. Proximal ICA/CCA peak systolic ratio 1.2. Scattered dense shadowing plaque in the carotid bulb and proximal internal and external carotid arter ies. VERTEBRAL ARTERIES: Antegrade flow. Normal waveforms. SUBCLAVIAN ARTERIES: No finding. OTHER: The thyroid is diffusely enlarged and heterogenous with the right lobe measuring 7.2 cm and le ft lobe measuring 7 cm. Increased vascularity. Coarse calcification in the left lobe. IMPRESSION: 1. BILATERAL PLAQUE. 50- 69% STENOSIS OF THE RIGHT INTERNAL CAROTID ARTERY. LESS THAN 50% STENOSIS OF THE LEFT INTERNAL CAROTID ARTERY. 2. DIFFUSELY ENLARGED HETEROGENOUS HYPERVASCULAR THYROID. NOT COMPLETELY IMAGED. RECOMMEND COMPLETE THYROID ULTRASOUND FOR FURTHER EVALUATION. COMMENT: Quality ID #195: Velocity criteria are extrapolated from the diameter data as defined by t he Society of Radiologists in Ultrasound Consensus Conference. Radiology 2003: 229; 340-346. TECHNICAL DOCUMENTATION: JOB ID: [id number] [employer]- All Rights Reserved Reading location - IP/workstation name: [email or web address]
== END ==
LOC: SP 07:49
PROVIDERS: ATTEND Internal Medicine Geriatric Medicine
DX: R55 Syncope and collapse (principal)
CPT/HCPCS: 93880

== ENCOUNTER → 2018-10-17 | Outpatient (CLI) | payer BC, MEDICARE ==
--- NOTE | 2018-10-17 11:16 | WOMENS IMAGING REPORT ---
EXAM DESCRIPTION: 3D SCREENING MAMMO BILAT COMPLETED DATE/TIME: 10/17/2018 9:48 am REASON FOR STUDY: E07.9 DISORDER OF THYROID,UNSPECIFIED, Z12.31 ROUTINE 3D BILATERAL SCREENIN E07.9 DISORDER OF THYROID, UNSPECIFIED Z12.31 ENCNTR SCREEN MAMMOGRAM FOR MALIGNANT NEOPLASM OF LARRY COMPARISON: [id number] EXAM PARAMETERS: Views: Standard craniocaudal and mediolateral oblique views of each breast recorded using digital acquisition and breast tomosynthesis. Read with the assistance of CAD. .[facility] - R2 Rn Child Version 9.2 LIMITATIONS: None. FINDINGS: No suspicious masses, suspicious calcifications or architectural distortion. No areas of c oncern. IMPRESSION: Assessment: Negative MAMMOGRAM. BIRADS 1. BREAST DENSITY: b. There are scattered areas of fibroglandular density. BIRAD: 1 NEGATIVE RECOMMENDATION: ROUTINE SCREENING COMMENT: The patient has been notified of the results by letter per MQSA requirements. Additional no tification policies are in place for contacting patient with suspicious or incomplete findings. Quality ID #225: The [employer] recommends an annual screening mammogram for women aged 40 years or over. This facility utilizes a reminder system to ensure that all patients receive reminder letters, and/or direct phone calls for appointments. This includes reminders for routine scr eening mammograms, diagnostic mammograms, or other Breast Imaging Interventions when appropriate. Th is patient will be placed in the appropriate reminder system. TECHNICAL DOCUMENTATION: FINDING NUMBER: (1) ASSESSMENT: (1) JOB ID: [id number] [employer]- All Rights Reserved Reading location - IP/workstation name: [email or web address]
--- NOTE | 2018-10-17 12:11 | WOMENS IMAGING REPORT ---
EXAM DESCRIPTION: U/S THYROID/ST TIS HEAD NECK COMPLETED DATE/TIME: 10/17/2018 10:04 am REASON FOR STUDY: E07.9 DISORDER OF THYROID,UNSPECIFIED E07.9 DISORDER OF THYROID, UNSPECIFIED Z12. 31 ENCNTR SCREEN MAMMOGRAM FOR MALIGNANT NEOPLASM OF LARRY COMPARISON: None. TECHNIQUE: Dynamic and static aponte-scale images acquired of the thyroid gland. Selected additional c olor/power Doppler images recorded. All images stored to PACS. LIMITATIONS: None. FINDINGS: RIGHT LOBE: Enlarged, 6 x 2.9 x 3.3 cm. Heterogeneous echotexture. There is an 8 mm part ially calcified nodule. LEFT LOBE: Enlarged, 6.1 x 3 x 3 cm. Heterogeneous echotexture. There is a 3 cm lower pole mass. T his is generally isodense but is slightly heterogeneous. ISTHMUS: Enlarged, 10 mm. Heterogeneous echotexture. No cystic or solid masses. OTHER: No other significant finding. IMPRESSION: Multinodular goiter. Consider biopsy of 3 cm mass in the left lower pole. TECHNICAL DOCUMENTATION: JOB ID: [id number] [employer]- All Rights Reserved Reading location - IP/workstation name: [email or web address]
== END ==
LOC: WI 08:59
PROVIDERS: ATTEND Internal Medicine Geriatric Medicine
DX: Z12.31 Encounter for screening mammogram for malignant neoplasm of breast (principal); E07.9 Disorder of thyroid, unspecified
CPT/HCPCS: 76536; 77063; 77067

== ENCOUNTER → 2018-11-03 | Day surgery (SDC) | payer BC, MEDICARE ==
[~2018-11-03] MED LIST: LIDOCAINE 1% INJ-PF (10 MG/ML) 30 ML SDV ONE
== END ==
LOC: RAD 08:00 → EDSTATUS 08:30
PROVIDERS: ATTEND Internal Medicine Geriatric Medicine
DX: E04.2 Nontoxic multinodular goiter (principal)
CPT/HCPCS: 88173 ×2; 88305 ×2; 10005; J3490

== ENCOUNTER 2019-01-25 05:17 | Day surgery (SDC) | payer BC, MEDICARE ==
[2019-01-18 11:27] LABS: HEMATOCRIT 36.5 % (36.0-47.0); HEMOGLOBIN 12.6 g/dL (12.0-15.5); MEAN CORPUSCULAR HEMOGLOBIN 31.4 pg (27.0-33.4); MEAN CORPUSCULAR HGB CONC 34.5 g/dL (32.0-36.0); MEAN CORPUSCULAR VOLUME 91 fl (80-97); PLATELET COUNT 190 10^3/uL (150-450); RED BLOOD COUNT 4.01 10^6/uL (3.72-5.28); RED CELL DISTRIBUTION WIDTH 13.4 % (11.5-14.0); WHITE BLOOD COUNT 5.8 10^3/uL (4.0-10.5)
[2019-01-18 11:51] LABS: ANION GAP 8 (5-19); BLOOD UREA NITROGEN 14 mg/dL (7-20); CALCIUM 9.5 mg/dL (8.4-10.2); CARBON DIOXIDE 28 mmol/L (22-30); CHLORIDE 105 mmol/L (98-107); GLUCOSE 91 mg/dL (75-110); POTASSIUM 4.5 mmol/L (3.6-5.0)
--- NOTE | 2019-01-18 14:38 | EKG REPORT ---
SEVERITY:- ABNORMAL ECG - SINUS RHYTHM ABNRM R PROG, CONSIDER ASMI OR LEAD PLACEMENT : Confirmed by: Keenan Ward 18-Jan-2019 14:37:28
[~2019-01-25 05:17] MED LIST changes: +CEFAZOLIN 1 GM/D5W RTU 1 GM/50 ML RTUPB IV ONE; +CEFAZOLIN 1 GM/D5W RTU 1 GM/50 ML RTUPB IV PRN; +LACTATED RINGERS 1000 ML IV PRN; +LIDOCAINE 0.5% INJ-PF (5 MG/ML) 50 ML SDV SUBCUT PRN; -LIDOCAINE 1% INJ-PF (10 MG/ML) 30 ML SDV ONE
[2019-01-25] MEDS ORDERED: ONDANSETRON HCL INJ/PF 4 MG/2 ML SDV ONE (07:03)
[2019-01-25] MEDS ORDERED: MIDAZOLAM 2 MG/2 ML INJ ONE (07:03)
[2019-01-25] MEDS ORDERED: FENTANYL CITRATE INJ/PF 250 MCG/5 ML AMPULE ONE (07:03)
[2019-01-25] MEDS ORDERED: DEXAMETHASONE SOD PHOSPHATE INJ 4 MG/1 ML VIAL ONE (07:03)
[2019-01-25] MEDS ORDERED: LIDOCAINE 2% INJ-PF (20 MG/ML) 10 ML AMPUL ONE (07:03)
[2019-01-25] MEDS ORDERED: SUGAMMADEX SODIUM 200 MG/2 ML SDV IV ONE (07:04)
[2019-01-25] MEDS ORDERED: PROPOFOL INJ 200 MG/20 ML VIAL IV ONE (07:04)
[2019-01-25] MEDS ORDERED: DIPHENHYDRAMINE HCL 50 MG/ML VIAL IV PRN (08:09)
[2019-01-25] MEDS ORDERED: FENTANYL CITRATE INJ/PF 100 MCG/2 ML AMPUL IV PRN ×3 (08:09)
[2019-01-25] MEDS ORDERED: MEPERIDINE HCL/PF INJ 25 MG/1 ML DISP.SYRIN IV PRN (08:09)
[2019-01-25] MEDS ORDERED: PROMETHAZINE HCL INJ 25 MG/1 ML VIAL IV PRN ×2 (08:09)
[2019-01-25] MEDS ORDERED: MICROFIBRILLAR COLLAGEN 1 GM PACK TP ONE (10:42)
[2019-01-25] MEDS ORDERED: DEXTROSE 5%-LACTATED RINGERS 1,000 ML IV PRN (11:10)
--- NOTE | 2019-01-25 11:11 | Operative Report ---
Operative Report DATE OF SURGERY: 01/25/19 PREOPERATIVE DIAGNOSIS: 1. Multinodular goiter. 2. Left upper pole thyroid l obe nodule suspicious for follicular neoplasm POSTOPERATIVE DIAGNOSIS: Same OPERATION: Total thyroidectomy with isthmusectomy SURGEON: ANGELI NUGENT 1ST MAXILLOFACIAL PROSTHETICS DENTIST: GLADYS SANDERSON 2ND Mine Laborer: СВЕТЛАНА VALENTIN ANESTHESIA: GA TISSUE REMOVED OR ALTERED: Left thyroid lobe and isthmus; right thyroid lobe COMPLICATIONS: None ESTIMATED BLOOD LOSS: 100 cc INTRAOPERATIVE FINDINGS: See below PROCEDURE: The patient was seen in the preop holding her with the neck was marked for a standard transcervical incision. This was in conjunction with an extension of patient's previous and left lateral cervical scar. She was then taken to the main operating room where general anesthesia was induced. Arms were tucked, neck extended, shoulder supported, and the patient placed in a semi-newman's position. The neck was then prepped and draped in sterile fashion. Surgical plan surgical timeout were conducted. The operative strategy was to perform left thyroid lobectomy as this was decided contained the dominant left upper pole nodule with previous FNA consistent with follicular neoplasm. The skin was anesthetized 1% plain lidocaine. Approximately 6-1/2 cm long incision was made with a #10 blade. Superior and inferior skin and platysma flaps were raised. Strap muscles including the sternohyoid and sternothyroid were divided in midline from the thyrocricoid membrane down to the sternal notch. The strap muscles were swept off of the left lobe anterior surface. There was no evidence of tumor or desmoplastic reaction anterior surface of the lobe. We mobilized the inferior pole attachments, as well as the left middle thyroid vein between clips. Left inferior parathyroid gland was felt to have been swept inferiorly and laterally during the dissection. We mobilized the superior pole which had a parent arborization of superior thyroid vessels. Stayed right on gland during the dissection. We divided the left lobe from the right along the isthmus to the right of the trachea. The isthmus was quite thickened. This was performed with electrocautery. Now working in a circumferential fashion, we mobilized the posterior attachments of the left lobe. The left superior parathyroid gland was visualized, and spared throughout the dissection by branch vessels right on the lateral aspect of the thyroid lobe. The posterior surface of the lobe came off of the trachea uneventfully. As usual attachments throughout Marks's ligament were quite dense. 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 We did see the left recurrent laryngeal nerve diving in to its endpoint in the inferior constrictor muscle and the choroid muscle. It was kept out of harm's way. Final attachments were freed up and the lobe was pulled out of the left neck. All clips were removed, short suture placed in the superior position and long suture in the lateral position. The specimen was sent to pathology and examined by Dr. Danielson who inked the specimen and then cut it transversely. The 2-1/2 to 3 cm left upper pole nodule was appreciated. There was no evidence of parathyroid tissue moved in the specimen, at least as determined grossly. Of note Dr. Hernandez assisted with the left thyroid lobectomy. Because the patient was doing well, and we had seen the left recurrent laryngeal nerve, at least the left upper and likely the left lower parathyroid glands, we are proceeded with completion thyroidectomy. Dr. Nugent switched positions, patient was tilted to the left side, and strap muscles elevated off of the thyroid lobe. Again muscles came off the anterior surface smoothly. Of note on the left and on the right side, we did have to divide a small portion of the medial superior aspect of the sternothyroid muscle to gain access to the superior pole structures. The posterior side of the right lobe came off the trachea uneventfully. The right inferior parathyroid gland was visualized adherent to the inferior pole of the right lobe. We did visualize what was likely the vagus nerve over the carotid sheath. It was kept out of harm's way. The superior pole vessels were taken right on gland between clips. The right upper parathyroid gland was visualized most likely in its fatty sheath in its typical posterior and very medial location. We never definitively saw the right recurrent laryngeal nerve. Nor did we dissected laterally and try to identified. We stayed right on the low parenchyma and worked in a circumferential fashion again freeing it up from all surrounding vascular and fascial attachments. Freeing the lobe up from Joshua's ligament was tedious. We stayed right on gland, and released the tissue between clips. Initially the right lobe was freed, and was found to be followed on the left lobe. All clips were removed from the parenchyma and long sutures placed in lateral position short suture in the superior position. It was sent to pathology, Dr. Bryce Lebron, who inked it and sliced it transversely. Note TIFFANIE Lopez, assisted with the right lobe action. We returned to the patient's neck check for any mechanical bleeding there was none. Patient was taken out of the cervical extension, strap muscles closed in midline with interrupted 2-0 Vicryl suture, and platysma closed with multiple interrupted 3-0 Vicryl sutures. Skin was closed with Dermabond glue. Patient tolerated the procedure well, extubated, taken recovery in stable condition. The physician patient services assistant, Ms. Paez, provided assistance during this case by: Assisting with retracting tissue, instillation of local anesthesia and closure of skin incisions. Synoptic report: The left recurrent laryngeal nerve, left upper parathyroid gland and left parathyroid gland visualized, and unharmed during the dissection. The right upper parathyroid gland, and likely the right upper parathyroid gland were visualized. Blood supply preserved to the right lower gland during dissection. The right recurrent laryngeal nerve was not definitively visualized during the dissection.
[2019-01-25] MEDS: FENTANYL CITRATE INJ/PF 100 MCG/2 ML AMPUL ONE ×2 (11:28→11:52)
[2019-01-25] MEDS ORDERED: KETOROLAC TROMETHAMINE INJ/PF 30 MG/1 ML SDV IV PRN (11:30)
[2019-01-25] MEDS ORDERED: RINGERS SOLUTION,LACTATED 1,000 ML IV PRN (11:31)
[2019-01-25] MEDS ORDERED: KETOROLAC TROMETHAMINE INJ/PF 30 MG/1 ML SDV ONE (12:31)
[2019-01-25] MEDS ORDERED: ACETAMINOPHEN 1,000 MG/100 ML RTUPB IV ONE (12:32)
[2019-01-25] MEDS: ACETAMINOPHEN INJ/PF 1000 MG/100 ML SDV IV SCH ×4 (12:50→23:27)
[2019-01-25] MEDS ORDERED: GLYCOPYRROLATE 1 MG/5 ML VIAL ONE (14:26)
[2019-01-25] MEDS ORDERED: NEOSTIGMINE METHYLSULFATE 10 MG/10 ML VIAL ONE (14:26)
[2019-01-25] MEDS ORDERED: SUCCINYLCHOLINE CHLORIDE INJ 200 MG/10 ML VIAL ONE (14:26)
[2019-01-25] MEDS ORDERED: ROCURONIUM BROMIDE INJ 50 MG/5 ML VIAL IV ONE (14:26)
[2019-01-25] MEDS ORDERED: EPHEDRINE SULFATE INJ 50 MG/1 ML AMPULE ONE (15:00)
[2019-01-25] MEDS ORDERED: MORPHINE SULFATE 10 MG/ML INJ IV PRN (21:33)
[2019-01-26 00:21] VITALS: BP 117/61
[2019-01-26] MEDS ORDERED: LEVOTHYROXINE SODIUM 0.112 MG TABLET PO SCH (06:00)
[2019-01-26] MEDS: ACETAMINOPHEN INJ/PF 1000 MG/100 ML SDV IV SCH (06:18)
[2019-01-26] MEDS ORDERED: LEVOTHYROXINE SODIUM 0.15 MG TABLET PO SCH (07:00)
--- NOTE | 2019-01-26 09:31 | PDOC DISCHARGE SUMMARY ---
General - Admit/Disc Date/PCP Admission Date/Primary Care Provider: FLORENTINO ROMEROLUCIANO Discharge Date: 01/26/19 - Discharge Diagnosis (1) Nodular goiter Is this a current diagnosis for this admission?: Yes (2) S/P CABG x 3 Is this a current diagnosis for this admission?: Yes (3) Anxiety disorder Is this a current diagnosis for this admission?: Yes (4) Chronic pain syndrome Is this a current diagnosis for this admission?: Yes (5) HTN (hypertension) Is this a current diagnosis for this admission?: Yes - Additional Information Resuscitation Status: Full Code Discharge Diet: As Tolerated Discharge Activity: Activity As Tolerated, Balance Activity w/Rest, Slowly Increase Activity Home Medications: Acetaminophen [Tylenol] 650 mg PO Q6H PRN 06/25/18 Aclidinium [place] [Tudorza Pressair] 1 puff IH BID 06/25/18 Atorvastatin Calcium [Lipitor 20 mg Tablet] 20 mg PO DAILY 06/25/18 Buspirone HCl [Buspar 5 mg Tablet] 7.5 mg PO BID 06/25/18 Carvedilol [Coreg 3.125 mg Tablet] 3.125 mg PO BID 06/25/18 Clopidogrel Bisulfate [Plavix 75 mg Tablet] 75 mg PO DAILY 06/25/18 Fluticasone Propionate [Flonase Allergy Relief] 1 spray NASL DAILY 06/25/18 Levothyroxine Sodium 75 mcg PO DAILY 06/25/18 Lisinopril [Prinivil 5 mg Tablet] 5 mg PO DAILY 06/25/18 Multivitamin [Multiple Vitamins] 1 tab PO DAILY 06/25/18 Nitroglycerin 0.4 mg PO PRN PRN 06/25/18 Vilazodone HCl [Viibryd] 40 mg PO DAILY 06/25/18 Albuterol Sulfate [Ventolin Hfa 8 gm Mdi (1 Mdi/ER Disp)] 2 puff IH QID 06/26/18 Nitroglycerin [Nitrostat 0.4 mg (1/150 Gr) Tabs 25/Bottle] 1 tab SL Q5MP PRN #20 bottle 06/26/18 Metoclopramide HCl [Reglan 10 mg Tablet] 1 - 2 tab PO ASDIR PRN #25 tablet 12/17/18 Melatonin 10 mg PO QHS 01/18/19 Isosorbide Dinitrate [Isosorbide Dinitrate ER] 30 mg PO DAILY 01/25/19 History of Present Illness History of Present Illness: KELECHI WEIR is a 73 year old female Hospital Course Hospital Course: The patient was admitted to the care of Dr. Nugent 01/25/2019. She was taken to the operating room through same-day surgery and underwent total thyroidectomy with isthmusectomy. She tolerated procedure well. Postoperatively she had excellent phonation. She was recovered on the floor uneventfully. Her postop calcium levels were 8.7 and 8.7. She was started on Synthroid 112 mcg p.o. daily. She was instructed to resume her Plavix on postoperative day 2. By the morning of the first postoperative day she was felt to have received maximum benefit from hospitalization was discharged home. Physical Exam Vital Signs: Temp Pulse Resp BP Pulse Ox 98.3 F 64 14 117/61 95 01/26/19 08:35 01/26/19 08:35 01/26/19 08:35 01/26/19 08:35 01/26/19 08:35 Intake & Output 01/25/19 01/26/19 01/27/19 06:59 06:59 06:59 Intake Total 0 2990 Output Total 15 Balance 0 2975 Weight 69.4 kg 70 kg General appearance: PRESENT: no acute distress, other - Patient phonating well. No hoarseness Neck exam: PRESENT: other - Mild bruising over the manubrium but no significant hematoma. Glue intact. Results Laboratory Results: 01/18/19 10:55 01/18/19 10:55 01/25/19 01/26/19 01/26/19 16:57 05:11 05:11 Calcium 8.7 8.7 Albumin 3.8 Qualifiers - * PATIENT BEING DISCHARGED WITH ANY OF THE FOLLOWING DIAGNOSIS: No Acute Heart Failure - Is this a Heart Failure Patient?: No Plan Discharge Plan: Patient be discharged under care of family follow-up Dr. Nugent at [facility] in 1 to 2 weeks, shower, resume preoperative medications, diet and activity except Plavix which she will resume on postoperative day 2. Prescription for Synthroid 112 mcg p.o. provided.
== END 2019-01-26 09:05 | disposition home or self-care (01) ==
LOC: OROUT 05:17 → 5 14:25 → OROUT 01-26 09:05
PROVIDERS: ATTEND Surgery
DX: E04.2 Nontoxic multinodular goiter (principal); E06.3 Autoimmune thyroiditis; E03.9 Hypothyroidism, unspecified; D34 Benign neoplasm of thyroid gland; Z95.5 Presence of coronary angioplasty implant and graft; I10 Essential (primary) hypertension; E78.00 Pure hypercholesterolemia, unspecified; I25.2 Old myocardial infarction; G47.30 Sleep apnea, unspecified; I25.10 Atherosclerotic heart disease of native coronary artery without angina pectoris; Z79.02 Long term (current) use of antithrombotics/antiplatelets; J44.9 Chronic obstructive pulmonary disease, unspecified; Z87.891 Personal history of nicotine dependence; Z79.51 Long term (current) use of inhaled steroids; Z79.899 Other long term (current) drug therapy; Z01.818 Encounter for other preprocedural examination
CPT/HCPCS: 93005; 36415 ×2; 82310; 82040; 85027; 80048; 94799; 93010; 00320; 60240; J2250; J0690; J3490 ×5; J1100; J3010 ×2; J1885; J2710; J0330; J2405; J2704; J0131 ×2; 320; 88307

== ENCOUNTER 2019-07-01 23:14 | Emergency (ER) | payer BC, MEDICARE ==
[2019-07-01 23:51] LABS: ABSOLUTE BASOPHILS # (AUTO) 0.1 10^3/uL (0.0-0.2); ABSOLUTE EOSINOPHILS # (AUTO) 0.2 10^3/uL (0.0-0.6); ABSOLUTE LYMPHOCYTES (AUTO) 1.7 10^3/uL (0.5-4.7); ABSOLUTE MONOCYTES (AUTO) 0.6 10^3/uL (0.1-1.4); ABSOLUTE NEUT (AUTO) 4.9 10^3/uL (1.7-8.2); BASOPHILS % (AUTO) 0.7 % (0-2); EOSINOPHILS % (AUTO) 2.6 % (0-6); HEMATOCRIT 38.3 % (36.0-47.0); HEMOGLOBIN 13.3 g/dL (12.0-15.5); LYMPHOCYTES % (AUTO) 22.4 % (13-45); MEAN CORPUSCULAR HGB CONC 34.6 g/dL (32.0-36.0); MEAN CORPUSCULAR VOLUME 92 fl (80-97); MONOCYTES % (AUTO) 8.3 % (3-13); PLATELET COUNT 193 10^3/uL (150-450); RED BLOOD COUNT 4.14 10^6/uL (3.72-5.28); RED CELL DISTRIBUTION WIDTH 13.6 % (11.5-14.0); TOTAL CELLS COUNTED % (AUTO) 100 %; WHITE BLOOD COUNT 7.4 10^3/uL (4.0-10.5)
--- NOTE | 2019-07-02 00:12 | RADIOLOGY REPORT (SQ) ---
EXAM DESCRIPTION: Chest x-ray Completed did not time 07/01/2019 11:47 PM CLINICAL HISTORY: 73 years Female Chest pain COMPARISON: 12/17/2018. FINDINGS: Cardiac enlargement. Median sternotomy wires are present. No consolidation or edema. No pleural fluid. No evidence of pneumothorax. IMPRESSION: No acute abnormality is identified.
[2019-07-02 00:13] LABS: ALBUMIN 4.2 g/dL (3.5-5.0); ALKALINE PHOSPHATASE 125 U/L (38-126); ANION GAP 10 (5-19); ASPARTATE AMINO TRANSFERASE 38 U/L (14-36); BILIRUBIN,DIRECT 0.2 mg/dL (0.0-0.4); BILIRUBIN,TOTAL 0.4 mg/dL (0.2-1.3); BLOOD UREA NITROGEN 17 mg/dL (7-20); CALCIUM 9.3 mg/dL (8.4-10.2); CARBON DIOXIDE 26 mmol/L (22-30); CHLORIDE 106 mmol/L (98-107); CREATINE KINASE 61 U/L (30-135); GLUCOSE 93 mg/dL (75-110); POTASSIUM 4.1 mmol/L (3.6-5.0); TOTAL PROTEIN 7.3 g/dL (6.3-8.2)
[2019-07-02 00:24] LABS: CREATINE KINASE MB 1.18 ng/mL (<4.55); TROPONIN I 0.028 ng/mL
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
[2019-07-02] MEDS ORDERED: ENOXAPARIN SODIUM INJ 60 MG/0.6 ML DISP.SYRIN SUBCUT ONE (03:39)
[2019-07-02 05:20] LABS: APPEARANCE,URINE CLEAR; BILIRUBIN,URINE NEGATIVE (NEGATIVE); COLOR,URINE YELLOW; GLUCOSE, URINE NEGATIVE (NEGATIVE); KETONES,URINE NEGATIVE (NEGATIVE); PROTEIN,URINE NEGATIVE (NEGATIVE); URINE SPECIFIC GRAVITY 1.016; UROBILINOGEN,URINE NEGATIVE mg/dL (<2.0)
[2019-07-02 07:53] VITALS: BP 145/87
--- NOTE | 2019-07-02 07:53 | ER Document Report ---
Doctor's Note Notes: 07/02/19 07:52 Transport team has arrived to take patient to [facility]. She is sitting up in bed, denies chest pain, is pleasant and has no appearance of being in acute distress at this time.
--- NOTE | 2019-07-02 08:07 | EKG REPORT ---
SEVERITY:- ABNORMAL ECG - SINUS RHYTHM BORDERLINE R WAVE PROGRESSION, ANTERIOR LEADS ABNORMAL T, CONSIDER ISCHEMIA, LATERAL LEADS : Confirmed by: Case Little MD 02-Jul-2019 08:06:00
--- NOTE | 2019-07-02 08:07 | EKG REPORT ---
SEVERITY:- ABNORMAL ECG - SINUS RHYTHM RIGHT AXIS DEVIATION NONSPECIFIC T ABNORMALITIES, LATERAL LEADS : Confirmed by: Case Little MD 02-Jul-2019 08:06:23
== END 2019-07-02 07:55 | disposition short-term general hospital (02) ==
LOC: ER 23:14
DX: R07.9 Chest pain, unspecified (principal); R79.89 Other specified abnormal findings of blood chemistry; I25.10 Atherosclerotic heart disease of native coronary artery without angina pectoris; E78.00 Pure hypercholesterolemia, unspecified; I10 Essential (primary) hypertension; Z88.6 Allergy status to analgesic agent; Z90.49 Acquired absence of other specified parts of digestive tract; Z98.1 Arthrodesis status; I25.2 Old myocardial infarction
CPT/HCPCS: 93005 ×2; 99285; 96372; 36415; 87086; 82553; 82550; 85025; 80053; 81001; 84484; 71045; 93010 ×2; J1650

== ENCOUNTER → 2020-05-07 | Outpatient (CLI) | payer MEDICAID, MEDICARE ==
--- NOTE | 2020-05-07 12:40 | WOMENS IMAGING REPORT ---
EXAM DESCRIPTION: 3D SCREENING MAMMO BILAT IMAGES COMPLETED DATE/TIME: 05/07/2020 11:45 am REASON FOR STUDY: Z12.31 ENCNTR SCREEN MAMMOGRAM FOR MALIGNANT NEOPLASM OF BREAST Z12.31 ENCNTR SCR EEN MAMMOGRAM FOR MALIGNANT NEOPLASM OF LARRY COMPARISON: Priors back to 2013 EXAM PARAMETERS: Views: Standard craniocaudal and mediolateral oblique views of each breast recorded using digital acquisition and breast tomosynthesis. Read with the assistance of CAD. .[facility] - R2 Obstetrics Gynecology Physician Version 9.2 LIMITATIONS: None. FINDINGS: No suspicious masses, suspicious calcifications or architectural distortion. No areas of c oncern. IMPRESSION: NEGATIVE MAMMOGRAM. BIRADS 1. BREAST DENSITY: b. There are scattered areas of fibroglandular density. BIRAD: ASSESSMENT: 1 NEGATIVE RECOMMENDATION: ROUTINE SCREENING COMMENT: The patient has been notified of the results by letter per MQSA requirements. Additional no tification policies are in place for contacting patient with suspicious or incomplete findings. Quality ID #225: The [employer] recommends an annual screening mammogram for women aged 40 years or over. This facility utilizes a reminder system to ensure that all patients receive reminder letters, and/or direct phone calls for appointments. This includes reminders for routine scr eening mammograms, diagnostic mammograms, or other Breast Imaging Interventions when appropriate. Th is patient will be placed in the appropriate reminder system. TECHNICAL DOCUMENTATION: FINDING NUMBER: (1) ASSESSMENT: (1) JOB ID: [id number] [employer]- All Rights Reserved Reading location - IP/workstation name: [email or web address]
== END ==
LOC: WI 11:09
PROVIDERS: ATTEND Internal Medicine
DX: Z12.31 Encounter for screening mammogram for malignant neoplasm of breast (principal)
CPT/HCPCS: 77063; 77067